=== PATIENT | female | born 1975 | race Caucasian/White ===

== ENCOUNTER 2016-12-13 12:20 | Emergency (ER) | payer OTHER ==
[~2016-12-13] VITALS: Ht 165.1 cm; Wt 127.0 kg
[~2016-12-13 12:20] MED LIST: ACETAMINOPHEN PR; ALDOMET250 MG PO; ATARAX PO; CLEOCIN HCL300 M1 PO; COUMADIN PO; FAMOTIDINE PO; LEVOFLOXACIN500 MG PO; LOVENOX SUBQ; MEDROL DOSEPAK4 MG PO; NAPROXEN375 MG PO; NO MEDICATIONS; PREDNISONE PO; PRENATAL MULITV1 TAB PO; PROTONIX PO; STERAPRED5 MG/DOSE1 PO; TRAMADOL HCL50 M1 PO; TYLENOL #3 PO; VICODIN 5/500 T1 TAB PO; VISTARIL PO; VOLTAREN75 MG PO; XARELTO15 MG PO
[2016-12-13 13:12] LABS: BASOPHIL% 0.8 % (0-2.5); EOSINOPHIL# 0.1 X10e3 (0-0.7); EOSINOPHIL% 1.7 % (0.0-7.0); HEMATOCRIT 34.3 % (35.0-45.0); LYMPHOCYTE# 1.2 X10e3 (1.0-3.5); LYMPHOCYTE% 18.6 % (17.0-45.0); MEAN CELL VOLUME 82.6 FL (83-96); MEAN CORPUSCULAR HEMOGLOBIN 26.5 PG (28-34); MEAN CORPUSCULAR HGB CONC 32.1 g/dL (30-36); MEAN PLATELET VOLUME 8.3 FL (6.5-11.5); MONOCYTE# 0.7 X10e3 (0-1.0); MONOCYTE% 10.8 % (3.0-12.0); NEUTROPHIL# 4.2 X10e3 (1.5-7.1); NEUTROPHIL% 68.1 % (40-75); PLATELET COUNT 237 X10e3 (140-420); RED BLOOD COUNT 4.15 X10e (3.90-5.30); WHITE BLOOD COUNT 6.2 X10e3 (4.0-10.5)
[2016-12-13 13:14] LABS: DIFF IND NO
[2016-12-13 13:31] LABS: ALBUMIN SERUM 3.4 g/dL (3.5-5.0); ALKALINE PHOSPHATASE 69 U/L (32-92); ALT (SGPT) 9 U/L (10-40); AST (SGOT) 14 U/L (10-42); BILIRUBIN,TOTAL 0.3 mg/dL (0.2-2.0); BLOOD UREA NITROGEN 14 mg/dL (9-23); CALCIUM SERUM 8.6 mg/dL (8.4-10.2); CARBON DIOXIDE 24 mmol/L (22-31); CHLORIDE 104 mmol/L (100-111); CREATININE SERUM 0.8 mg/dL (0.6-1.4); GLOM FILT RATE Estimated 91.7 mL/min (>60); GLUCOSE FASTING 113 mg/dL (70-110); POTASSIUM 4.1 mmol/L (3.5-5.1); PROTEIN TOTAL SERUM 6.8 g/dL (6.0-8.3); SODIUM 136 mmol/L (135-145)
[2016-12-13 13:32] LABS: BILIRUBIN, DIRECT <0.1 mg/dL (0.0-0.2); BILIRUBIN,INDIRECT 0.2 mg/dL (0.0-0.9)
== END 2016-12-13 14:49 | disposition home or self-care (01) ==
LOC: SED 12:20
PROVIDERS: Emergency Medicine
DX: T78.3XXA Angioneurotic edema, initial encounter (principal); I10 Essential (primary) hypertension; Z86.73 Personal history of transient ischemic attack (TIA), and cerebral infarction without residual deficits; Z79.899 Other long term (current) drug therapy
CPT/HCPCS: 36415; 80048; 80076; 85025; 96374; 96375; 99284; J1200; J2930